=== PATIENT | male | born 1970 | race Caucasian/White ===

== ENCOUNTER 2019-11-04 09:04 | Inpatient (IN) | payer OTHER ==
[~2019-11-04] VITALS: Ht 170.2 cm; Wt 77.5 kg
[2019-11-04] MEDS ORDERED: LOSA-30 PO (09:24)
[2019-11-04] MEDS ORDERED: ALPR1TAB7 PO (09:24)
[2019-11-04 10:01] LABS: BASOPHILS % (AUTO) 0.2 % (0.0-2.0); EOSINOPHILS % (AUTO) 0 % (1.0-6.0); HEMATOCRIT 42.5 % (41-53); HEMOGLOBIN 14.2 g/dL (13.5-17.5); LYMPHOCYTES # (AUTO) 0.8 K/uL (1.0-4.8); LYMPHOCYTES % (AUTO) 8.4 % (22.0-44.0); MEAN CORPUSCULAR HEMOGLOBIN 30.2 pg (26.0-34.0); MEAN CORPUSCULAR HGB CONC 33.3 G/dL (31.0-37.0); MEAN CORPUSCULAR VOLUME 91 fL (80-100); MONOCYTES # (AUTO) 0.8 K/uL (0.1-1.0); MONOCYTES % (AUTO) 8.9 % (2.0-9.0); NEUTROPHILS # (AUTO) 7.5 K/uL (1.8-7.7); NEUTROPHILS % (AUTO) 82.5 % (40.0-70.0); PLATELET COUNT (AUTO) 205 K/uL (150-450); RED BLOOD CELL COUNT(AUTO) 4.69 MIL/uL (4.50-5.90); RED CELL DISTRIBUTION WIDTH 14.4 % (11.5-14.5)
[2019-11-04] MEDS ORDERED: ACETAMINOPHEN 325 MG TABLET PO PRN (10:15)
[2019-11-04 10:21] LABS: ANION GAP 5 mmol/L (8-16); CALCIUM, TOTAL 8.9 mg/dL (8.8-10.5); CARBON DIOXIDE 31 mmol/L (22-29); CHLORIDE 104 mmol/L (98-107); CREATININE 0.84 mg/dL (0.60-1.30); GLOMERULAR FILTR. RATE CALC > 60 mL/min (>60); GLUCOSE,RANDOM 110 mg/dL (70-110); POTASSIUM 4.3 mmol/L (3.5-5.1); SODIUM SERUM 140 mmol/L (136-145); UREA NITROGEN, BLOOD 11 mg/dL (7-18)
[2019-11-04 10:27] LABS: ALANINE AMINOTRANSFERASE 72 U/L (12-78); ALBUMIN 3.9 g/dL (3.4-5.0); ALKALINE PHOSPHATASE 71 U/L (46-116); ASPARTATE AMINOTRANSFERASE 81 U/L (15-37); BILIRUBIN,TOTAL 0.4 mg/dL (0.1-1.0); TOTAL PROTEIN, SERUM 6.9 g/dL (6.4-8.2)
[2019-11-04] MEDS ORDERED: ONDANSETRON HCL 4 MG/2 ML VIAL IVP PRN (10:30)
[2019-11-04] MEDS ORDERED: 0.9% SODIUM CHLORIDE 10 ML SYRINGE IVP PRN (10:30)
[2019-11-04] MEDS ORDERED: ALBUTEROL SULFATE 2.5 MG/0.5 ML NEB SOLUTION NEB PRN (10:30)
[2019-11-04] MEDS ORDERED: BISACODYL 10 MG RECTAL RECTAL SUPPOSITORY PR PRN (10:30)
[2019-11-04] MEDS ORDERED: MAGNESIUM HYDROXIDE SUSPENSION 30 ML UDCUP PO PRN (10:30)
[2019-11-04] MEDS ORDERED: IPRATROPIUM BROMIDE 0.5 MG/2.5 ML NEB SOLUTION NEB PRN (10:30)
[2019-11-04] MEDS: SODIUM CHLORIDE 0.9% 1,000 ML IV SCH ×2 (10:55→11:07)
[2019-11-04] MEDS: FOLIC ACID 1 MG TABLET PO SCH (12:21)
[2019-11-04] MEDS: MULTIVITAMINS WITH MINERALS, THERAPEUTIC TABLET PO SCH (12:21)
[2019-11-04] MEDS: THIAMINE HCL 100 MG TABLET PO SCH (12:21)
[2019-11-04 13:05] VITALS: BP 117/77
[2019-11-04] MEDS ORDERED: INFLUENZA VIRUS VACCINE QVS 2019-20 (3YR+)/PF 60 MCG/0.5 ML SYRINGE IM ONE (13:30)
[2019-11-04] MEDS ORDERED: PNEUMOCOCCAL VACCINE POLYVALENT 0.5 ML VIAL [PPSV23] IM ONE (13:30)
[2019-11-04 15:23] VITALS: BP 113/64
[2019-11-04 19:00] VITALS: BP_SYST 135; BP_SYST 143; BP_DIAS 87; BP_DIAS 91
[2019-11-05 00:12] VITALS: BP 122/83
[2019-11-05] MEDS: SODIUM CHLORIDE 0.9% 1,000 ML IV SCH (01:38)
[2019-11-05] MEDS: ACETAMINOPHEN 325 MG TABLET PO PRN ×2 (03:46→10:29)
[2019-11-05 04:38] VITALS: BP 138/86
[2019-11-05 07:36] VITALS: BP 128/81
[2019-11-05 07:50] LABS: BASOPHILS % (AUTO) 0.3 % (0.0-2.0); EOSINOPHILS % (AUTO) 0.9 % (1.0-6.0); HEMATOCRIT 41.7 % (41-53); HEMOGLOBIN 13.8 g/dL (13.5-17.5); LYMPHOCYTES # (AUTO) 1.1 K/uL (1.0-4.8); MEAN CORPUSCULAR HEMOGLOBIN 29.8 pg (26.0-34.0); MEAN CORPUSCULAR VOLUME 90 fL (80-100); MONOCYTES # (AUTO) 0.5 K/uL (0.1-1.0); MONOCYTES % (AUTO) 8.6 % (2.0-9.0); NEUTROPHILS # (AUTO) 4.6 K/uL (1.8-7.7); NEUTROPHILS % (AUTO) 72.2 % (40.0-70.0); PLATELET COUNT (AUTO) 183 K/uL (150-450); RED BLOOD CELL COUNT(AUTO) 4.63 MIL/uL (4.50-5.90); RED CELL DISTRIBUTION WIDTH 14.5 % (11.5-14.5)
[2019-11-05] MEDS: MULTIVITAMINS WITH MINERALS, THERAPEUTIC TABLET PO SCH (07:58)
[2019-11-05] MEDS: THIAMINE HCL 100 MG TABLET PO SCH (07:58)
[2019-11-05] MEDS: DOCUSATE SODIUM 100 MG CAPSULE PO PRN (07:58)
[2019-11-05] MEDS: FOLIC ACID 1 MG TABLET PO SCH (07:58)
[2019-11-05 08:06] LABS: ALANINE AMINOTRANSFERASE 60 U/L (12-78); ALBUMIN 3.3 g/dL (3.4-5.0); ALKALINE PHOSPHATASE 68 U/L (46-116); ANION GAP 8 mmol/L (8-16); ASPARTATE AMINOTRANSFERASE 46 U/L (15-37); BILIRUBIN,TOTAL 0.4 mg/dL (0.1-1.0); CALCIUM, TOTAL 8.5 mg/dL (8.8-10.5); CARBON DIOXIDE 27 mmol/L (22-29); CHLORIDE 104 mmol/L (98-107); CREATININE 0.93 mg/dL (0.60-1.30); GLOMERULAR FILTR. RATE CALC > 60 mL/min (>60); GLUCOSE,RANDOM 92 mg/dL (70-110); POTASSIUM 3.9 mmol/L (3.5-5.1); SODIUM SERUM 139 mmol/L (136-145); TOTAL PROTEIN, SERUM 6.1 g/dL (6.4-8.2)
[2019-11-05 08:11] LABS: UREA NITROGEN, BLOOD 13 mg/dL (7-18)
[2019-11-05] MEDS: PANTOPRAZOLE SODIUM 40 MG DR TABLET PO SCH (10:30)
[2019-11-05 16:09] VITALS: BP 125/82
[2019-11-05 20:08] VITALS: BP 126/87
[2019-11-06 04:36] VITALS: BP 129/79
[2019-11-06] MEDS ORDERED: SODIUM CHLORIDE 0.9% 250 ML IV ONE (04:39)
[2019-11-06 08:31] VITALS: BP 123/87
[2019-11-06] MEDS: FOLIC ACID 1 MG TABLET PO SCH (08:55)
[2019-11-06] MEDS: PANTOPRAZOLE SODIUM 40 MG DR TABLET PO SCH (08:55)
[2019-11-06] MEDS: MULTIVITAMINS WITH MINERALS, THERAPEUTIC TABLET PO SCH (08:55)
[2019-11-06] MEDS: THIAMINE HCL 100 MG TABLET PO SCH (08:55)
[2019-11-06] MEDS: SODIUM CHLORIDE 0.9% 1,000 ML IV SCH (10:11)
[2019-11-06] MEDS ORDERED: DIAZEPAM 10 MG TABLET PO PRN (14:45)
[2019-11-06 16:00] VITALS: BP 133/97
[2019-11-06 20:00] VITALS: BP 117/87
[2019-11-06] MEDS: ACETAMINOPHEN 325 MG TABLET PO PRN (23:58)
[2019-11-07 00:08] VITALS: BP 122/78
[2019-11-07 06:05] VITALS: BP 124/85
[2019-11-07] MEDS ORDERED: DIAZEPAM 10 MG TABLET PO PRN (07:00)
[2019-11-07 07:44] VITALS: BP 109/59
[2019-11-07] MEDS: SODIUM CHLORIDE 0.9% 1,000 ML IV SCH ×3 (08:13→22:13)
[2019-11-07] MEDS: FOLIC ACID 1 MG TABLET PO SCH (08:15)
[2019-11-07] MEDS: DIAZEPAM 10 MG TABLET PO SCH ×4 (08:15→20:44)
[2019-11-07] MEDS: THIAMINE HCL 100 MG TABLET PO SCH (08:15)
[2019-11-07] MEDS: MULTIVITAMINS WITH MINERALS, THERAPEUTIC TABLET PO SCH (08:15)
[2019-11-07] MEDS: PANTOPRAZOLE SODIUM 40 MG DR TABLET PO SCH (08:15)
[2019-11-07 16:00] VITALS: BP 116/81
[2019-11-07 20:05] VITALS: BP 131/81
[2019-11-08 04:45] VITALS: BP 140/89
[2019-11-08] MEDS: MULTIVITAMINS WITH MINERALS, THERAPEUTIC TABLET PO SCH (08:12)
[2019-11-08] MEDS: FOLIC ACID 1 MG TABLET PO SCH (08:12)
[2019-11-08] MEDS: DIAZEPAM 10 MG TABLET PO SCH ×4 (08:12→20:34)
[2019-11-08] MEDS: THIAMINE HCL 100 MG TABLET PO SCH (08:13)
[2019-11-08] MEDS: PANTOPRAZOLE SODIUM 40 MG DR TABLET PO SCH (08:13)
[2019-11-08 08:22] VITALS: BP 124/80
[2019-11-08] MEDS: SODIUM CHLORIDE 0.9% 1,000 ML IV SCH ×2 (09:38→21:10)
[2019-11-08] MEDS: ACETAMINOPHEN 325 MG TABLET PO PRN (11:56)
[2019-11-08 20:00] VITALS: BP 124/76
[2019-11-09 04:00] VITALS: BP 120/76
[2019-11-09] MEDS ORDERED: DIAZEPAM 5 MG TABLET PO PRN (07:00)
[2019-11-09 07:52] VITALS: BP 121/76
[2019-11-09] MEDS: MULTIVITAMINS WITH MINERALS, THERAPEUTIC TABLET PO SCH (08:02)
[2019-11-09] MEDS: DIAZEPAM 5 MG TABLET PO SCH ×4 (08:02→20:38)
[2019-11-09] MEDS: THIAMINE HCL 100 MG TABLET PO SCH (08:02)
[2019-11-09] MEDS: ACETAMINOPHEN 325 MG TABLET PO PRN ×2 (08:02→20:38)
[2019-11-09] MEDS: PANTOPRAZOLE SODIUM 40 MG DR TABLET PO SCH (08:02)
[2019-11-09] MEDS: FOLIC ACID 1 MG TABLET PO SCH (08:02)
[2019-11-09 15:57] VITALS: BP 104/80
[2019-11-09] MEDS: SODIUM CHLORIDE 0.9% 1,000 ML IV SCH (16:15)
[2019-11-09 20:26] VITALS: BP 112/61
[2019-11-09] MEDS: BENZONATATE 100 MG CAPSULE PO PRN (20:38)
[2019-11-10 04:34] VITALS: BP 122/75
[2019-11-10] MEDS: SODIUM CHLORIDE 0.9% 1,000 ML IV SCH ×2 (05:15→21:38)
[2019-11-10] MEDS ORDERED: DIAZEPAM 5 MG TABLET PO PRN (07:00)
[2019-11-10 07:39] VITALS: BP 120/74
[2019-11-10] MEDS: PANTOPRAZOLE SODIUM 40 MG DR TABLET PO SCH (08:17)
[2019-11-10] MEDS: ACETAMINOPHEN 325 MG TABLET PO PRN (08:17)
[2019-11-10] MEDS: THIAMINE HCL 100 MG TABLET PO SCH (08:18)
[2019-11-10] MEDS: BENZONATATE 100 MG CAPSULE PO PRN (08:18)
[2019-11-10] MEDS: MULTIVITAMINS WITH MINERALS, THERAPEUTIC TABLET PO SCH (08:18)
[2019-11-10] MEDS: FOLIC ACID 1 MG TABLET PO SCH (08:18)
[2019-11-10 15:45] VITALS: BP 112/65
[2019-11-10 20:18] VITALS: BP 115/75
[2019-11-11 06:00] VITALS: BP 114/81
[2019-11-11 07:11] LABS: HIV 1-2 SCREEN 4TH GEN W/RFLX Non Reactive (Non Reactive)
[2019-11-11] MEDS: MULTIVITAMINS WITH MINERALS, THERAPEUTIC TABLET PO SCH (08:32)
[2019-11-11] MEDS: PANTOPRAZOLE SODIUM 40 MG DR TABLET PO SCH (08:32)
[2019-11-11] MEDS: THIAMINE HCL 100 MG TABLET PO SCH (08:32)
[2019-11-11] MEDS: FOLIC ACID 1 MG TABLET PO SCH (08:32)
[2019-11-11 09:08] VITALS: BP 116/70
[2019-11-11 16:16] VITALS: BP 122/78
[2019-11-11 19:52] VITALS: BP 123/80
[2019-11-11] MEDS: NAPROXEN 500 MG TABLET PO SCH (20:45)
[2019-11-12 05:44] VITALS: BP 121/83
[2019-11-12 07:25] VITALS: BP 104/77
[2019-11-12] MEDS: FOLIC ACID 1 MG TABLET PO SCH (08:37)
[2019-11-12] MEDS: NAPROXEN 500 MG TABLET PO SCH ×2 (08:37→22:06)
[2019-11-12] MEDS: PANTOPRAZOLE SODIUM 40 MG DR TABLET PO SCH (08:37)
[2019-11-12] MEDS: THIAMINE HCL 100 MG TABLET PO SCH (08:37)
[2019-11-12] MEDS: MULTIVITAMINS WITH MINERALS, THERAPEUTIC TABLET PO SCH (08:37)
[2019-11-12 15:29] VITALS: BP 121/73
[2019-11-12 17:44] LABS: QUANTIFERON+, Nil Value 0.03 IU/mL; QUANTIFERON+,Mitogen Value >10.00 IU/mL; QUANTIFERON+,TB1 Antigen Value 0.46 IU/mL; QUANTIFERON, TB GOLD PLUS Positive (Negative)
[2019-11-12 20:32] VITALS: BP 135/84
[2019-11-12] MEDS: BENZONATATE 100 MG CAPSULE PO PRN (22:14)
[2019-11-13 04:38] VITALS: BP 125/125
[2019-11-13 07:42] VITALS: BP 122/80
[2019-11-13] MEDS: MULTIVITAMINS WITH MINERALS, THERAPEUTIC TABLET PO SCH (08:48)
[2019-11-13] MEDS: PANTOPRAZOLE SODIUM 40 MG DR TABLET PO SCH (08:48)
[2019-11-13] MEDS: FOLIC ACID 1 MG TABLET PO SCH (08:48)
[2019-11-13] MEDS: THIAMINE HCL 100 MG TABLET PO SCH (08:48)
[2019-11-13] MEDS: NAPROXEN 500 MG TABLET PO SCH ×2 (08:48→21:04)
[2019-11-13 20:00] VITALS: BP 125/81
[2019-11-13] MEDS: BENZONATATE 100 MG CAPSULE PO PRN (21:04)
[2019-11-14 04:00] VITALS: BP 111/75
[2019-11-14 08:04] VITALS: BP 120/80
[2019-11-14] MEDS: FOLIC ACID 1 MG TABLET PO SCH (08:38)
[2019-11-14] MEDS: NAPROXEN 500 MG TABLET PO SCH ×2 (08:39→20:02)
[2019-11-14] MEDS: PANTOPRAZOLE SODIUM 40 MG DR TABLET PO SCH (08:39)
[2019-11-14] MEDS: MULTIVITAMINS WITH MINERALS, THERAPEUTIC TABLET PO SCH (08:39)
[2019-11-14] MEDS: THIAMINE HCL 100 MG TABLET PO SCH (08:40)
[2019-11-14 15:56] VITALS: BP 111/74
[2019-11-14] MEDS: ACETAMINOPHEN 325 MG TABLET PO PRN (16:28)
[2019-11-14 19:35] VITALS: BP 135/89
[2019-11-14] MEDS: BENZONATATE 100 MG CAPSULE PO PRN (20:02)
[2019-11-15 04:00] VITALS: BP 132/79
[2019-11-15] MEDS: NAPROXEN 500 MG TABLET PO SCH ×2 (08:09→20:14)
[2019-11-15] MEDS: PANTOPRAZOLE SODIUM 40 MG DR TABLET PO SCH (08:09)
[2019-11-15] MEDS: FOLIC ACID 1 MG TABLET PO SCH (08:09)
[2019-11-15] MEDS: THIAMINE HCL 100 MG TABLET PO SCH (08:10)
[2019-11-15] MEDS: MULTIVITAMINS WITH MINERALS, THERAPEUTIC TABLET PO SCH (08:10)
[2019-11-15 08:37] VITALS: BP 122/79
[2019-11-15 15:20] VITALS: BP 116/83
[2019-11-15 20:09] VITALS: BP 124/78
[2019-11-15] MEDS: BENZONATATE 100 MG CAPSULE PO PRN (20:13)
[2019-11-16 05:22] VITALS: BP 116/81
[2019-11-16 07:45] VITALS: BP 148/77
[2019-11-16] MEDS: MULTIVITAMINS WITH MINERALS, THERAPEUTIC TABLET PO SCH (07:52)
[2019-11-16] MEDS: BENZONATATE 100 MG CAPSULE PO PRN ×2 (07:52→20:22)
[2019-11-16] MEDS: DOCUSATE SODIUM 100 MG CAPSULE PO PRN (07:52)
[2019-11-16] MEDS: FOLIC ACID 1 MG TABLET PO SCH (07:52)
[2019-11-16] MEDS: THIAMINE HCL 100 MG TABLET PO SCH (07:52)
[2019-11-16] MEDS: PANTOPRAZOLE SODIUM 40 MG DR TABLET PO SCH (07:52)
[2019-11-16] MEDS: NAPROXEN 500 MG TABLET PO SCH ×2 (07:54→20:22)
[2019-11-16 15:10] VITALS: BP 117/79
[2019-11-16 19:56] VITALS: BP 136/86
[2019-11-17 05:29] VITALS: BP 113/74
[2019-11-17] MEDS: MULTIVITAMINS WITH MINERALS, THERAPEUTIC TABLET PO SCH (08:28)
[2019-11-17] MEDS: THIAMINE HCL 100 MG TABLET PO SCH (08:28)
[2019-11-17] MEDS: PANTOPRAZOLE SODIUM 40 MG DR TABLET PO SCH (08:28)
[2019-11-17] MEDS: FOLIC ACID 1 MG TABLET PO SCH (08:28)
[2019-11-17] MEDS: NAPROXEN 500 MG TABLET PO SCH ×2 (08:29→20:29)
[2019-11-17 08:37] VITALS: BP 123/70
[2019-11-17] MEDS: ACETAMINOPHEN 325 MG TABLET PO PRN (17:39)
[2019-11-17 17:42] VITALS: BP 116/78
[2019-11-17 19:54] VITALS: BP 122/86
[2019-11-17] MEDS: BENZONATATE 100 MG CAPSULE PO PRN (20:30)
[2019-11-18 04:33] VITALS: BP 112/72
[2019-11-18 08:13] VITALS: BP 119/65
[2019-11-18] MEDS: FOLIC ACID 1 MG TABLET PO SCH (08:28)
[2019-11-18] MEDS: THIAMINE HCL 100 MG TABLET PO SCH (08:28)
[2019-11-18] MEDS: MULTIVITAMINS WITH MINERALS, THERAPEUTIC TABLET PO SCH (08:29)
[2019-11-18] MEDS: PANTOPRAZOLE SODIUM 40 MG DR TABLET PO SCH (08:29)
[2019-11-18] MEDS: NAPROXEN 500 MG TABLET PO SCH ×2 (08:29→20:05)
[2019-11-18] MEDS: ACETAMINOPHEN 325 MG TABLET PO PRN (14:20)
[2019-11-18 15:46] VITALS: BP 137/81
[2019-11-18 19:18] VITALS: BP 118/83
[2019-11-19 04:28] VITALS: BP 142/90
[2019-11-19 07:30] VITALS: BP 114/72
[2019-11-19] MEDS: FOLIC ACID 1 MG TABLET PO SCH (09:16)
[2019-11-19] MEDS: THIAMINE HCL 100 MG TABLET PO SCH (09:16)
[2019-11-19] MEDS: MULTIVITAMINS WITH MINERALS, THERAPEUTIC TABLET PO SCH (09:16)
[2019-11-19] MEDS: PANTOPRAZOLE SODIUM 40 MG DR TABLET PO SCH (09:16)
[2019-11-19] MEDS: NAPROXEN 500 MG TABLET PO SCH (09:16)
[2019-11-19 11:07] VITALS: BP 116/75
[2019-11-19 16:00] VITALS: BP 125/70
[2019-11-19] MEDS ORDERED: MULT-248 PO (16:16)
[2019-11-19] MEDS ORDERED: MOM30 PO (16:19)
[2019-11-19] MEDS ORDERED: ACET-66 PO (16:19)
[2019-11-19 19:22] VITALS: BP 120/81
[2019-11-19] MEDS ORDERED: NAPROXEN 500 MG TABLET PO SCH (22:00)
[2019-11-20] MEDS: ACETAMINOPHEN 325 MG TABLET PO PRN (00:15)
[2019-11-20 04:51] VITALS: BP 121/75
== END 2019-11-20 07:20 | DRG 897 ==
LOC: EMS 09:05 → 6S 10:11
PROVIDERS: ADMIT Internal Medicine; ATTEND Internal Medicine
DX: F13.20 Sedative, hypnotic or anxiolytic dependence, uncomplicated (principal); F13.239 Sedative, hypnotic or anxiolytic dependence with withdrawal, unspecified; F15.229 Other stimulant dependence with intoxication, unspecified; I10 Essential (primary) hypertension; F17.210 Nicotine dependence, cigarettes, uncomplicated; R76.11 Nonspecific reaction to tuberculin skin test without active tuberculosis; M25.552 Pain in left hip
CPT/HCPCS: 86480; 87015; 87206; 87389; 87556; 87798; 94640; G0480; J7030; J7050